=== PATIENT | male | born 1970 | race African-American/Black ===

== ENCOUNTER 2019-03-02 07:14 | Inpatient (IN) | payer MEDICARE, MEDICAID ==
[~2019-03-02] VITALS: Ht 180.3 cm; Wt 88.2 kg
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
[2019-03-02] MEDS ORDERED: PLEASE ENTER ALLERGIES MC SCH (07:30)
[2019-03-02] MEDS ORDERED: KETOROLAC 30 MG/1 ML IM ONE (07:30)
[2019-03-02] MEDS ORDERED: KETOROLAC 30 MG/1 ML ONE (07:30)
[2019-03-02] MEDS ORDERED: KETOROLAC 30 MG/1 ML IVPush ONE (08:00)
[2019-03-02 08:18] LABS: MEAN CORPUSCULAR HEMOGLOBIN 29.3 pg (27.5-34.5); MEAN CORPUSCULAR HGB CONC 32.5 g/dL (33.2-36.2); MEAN PLATELET VOLUME 8.7 fL (7.4-10.4); PLATELET COUNT 240 x10^3/uL (130-400); RED BLOOD COUNT 4.62 x10^6/uL (4.38-5.82); RED CELL DISTRIBUTION WIDTH 13.9 % (9.4-14.8)
[2019-03-02 08:28] LABS: ALBUMIN 2.7 g/dL (3.4-5.0); ANION GAP 18 mmol/L (5-15); CALCIUM 9.8 mg/dL (8.5-10.1); CHLORIDE 98 mmol/L (98-107); CREATININE 1.34 mg/dL (0.7-1.3)
--- NOTE | 2019-03-02 08:57 | NUR ---
Lab at bedside for add on labs, plan of care updated, call macdonald within reach.
[2019-03-02] MEDS ORDERED: SODIUM CHLORIDE 0.9% 1,000ML IVBOLUS ONE ×2 (09:00→11:00)
[2019-03-02 09:09] LABS: PH, VENOUS 7.325 pH (7.320-7.420)
[2019-03-02 09:10] LABS: MD YES
[2019-03-02 09:13] LABS: <PLATELET ESTIMATE> ADEQUATE; <PLT MORPHOLOGY> NORMAL PLT MORPH; <RBC MORPHOLOGY> NORMAL; BAND#(MANUAL) 1.91 x10^3/uL; BANDS%(MANUAL) 21 % (0-7); LYMPH#(MANUAL) 0.73 x10^3/uL (1-3.4); LYMPHS% (MANUAL) 8 % (22-44); MONOS#(MANUAL) 0.36 x10^3/uL (0.3-2.7); MONOS% (MANUAL) 4 % (2-9); SEGS% (MANUAL) 67 % (42-75)
[2019-03-02] MEDS ORDERED: LIDOCAINE-MPF 1%, 5ML ONE ×2 (09:26→09:38)
[2019-03-02] MEDS ORDERED: LIDOCAINE-MPF 1%, 5ML INFIL ONE (09:30)
[2019-03-02 10:33] LABS: ACETONE, SERUM Large (80mg/dL) mg/dL (Negative)
--- NOTE | 2019-03-02 10:44 | NUR ---
Patient resting in [facility], no requests at this time, call macdonald within reach.
[2019-03-02] MEDS ORDERED: VANCOMYCIN PER PHARMACY MC PRN ×2 (11:30→14:00)
[2019-03-02] MEDS ORDERED: PIPERACILLIN/TAZO/PMX 3.375GM 50 ML IV ONE (11:30)
[2019-03-02] MEDS ORDERED: PIPERACILLIN/TAZO/PMX 3.375GM 50 ML ONE (11:41)
[2019-03-02] MEDS ORDERED: PHARMACOKINETIC CONSULTATION MC ONE ×2 (12:00→17:30)
[2019-03-02] MEDS ORDERED: VANCOMYCIN 2,000 MG in SODIUM CHLORIDE 0.9% 500 ML IV ONE (12:00)
[2019-03-02] MEDS ORDERED: INSULIN REGULAR 100 UNITS/ML, 3ML VIAL IVPush ONE (12:00)
--- NOTE | 2019-03-02 12:00 | NUR ---
REPORT RECEIVED FROM ANANYA GUZMAN AT BEDSIDE. PT SLEEPING, RESPS EVEN AND UNLABORED, IVF INFUSING. PT TO HAVE BLOOD CX X 2 THEN IV ABX. PT UPDATED WITH POC.
[2019-03-02] MEDS ORDERED: SODIUM CHLORIDE 0.9% 1,000 ML IV ONE (12:14)
--- NOTE | 2019-03-02 12:22 | NUR ---
BLOOD CX DONE X 1 , AWAITING SECOND SET TO BE DRAWN BY LAB PRIOR TO ABX ADMIN.
[2019-03-02] MEDS ORDERED: SODIUM CHLORIDE FLUSH 10ML SYR IVF PRN (12:30)
--- NOTE | 2019-03-02 12:31 | NUR ---
PT UNABLE TO RECALL HOME MEDS, STATES HE ONLY TAKES MEDS FOR HIV. PT'S PHARMACY IN [place] CALLED, NO ANSWER FROM STAFF. MESSAGE LEFT BY THIS RN FOR PHARMACY WITH CALL BACK INFORMATION TO OBTAIN PT'S MED REC.
[2019-03-02] MEDS ORDERED: INSULIN LISPRO 100 UNITS/ML, PEN ONE (13:03)
[2019-03-02] MEDS ORDERED: BACITRACIN 50,000 UNIT ONE (13:17)
--- NOTE | 2019-03-02 13:17 | NUR ---
REPORT GIVEN TO RECEIVING RN MEREDITH
--- NOTE | 2019-03-02 13:26 | NUR ---
THIS RN CONFIRMED WITH PAVEL MCGREGOR THAT INSULIN ORDER IS TO BE GIVEN IV PUSH, CONFIRMS HE WANTS HUMALOG 8 UNITS ADMINISTERED IV PUSH FOR GLUCOSE 375. PT GIVEN DIABETIC DIET TRAY WITH OK. PT A&O, RESPS EVEN AND UNLABORED. VANCO INFUSING, STARTED AFTER BLOOD CX DRAWN X 2. HOSPITALIST PRABHAKAR SKINNER AT BEDSIDE. PT A&O, RESPS EVEN AND UNLABORED, TRINA.
--- NOTE | 2019-03-02 13:30 | NUR ---
ORTHO SURGEON NISSA AT BEDSIDE. PER , PT IS TO BE NPO. LUNCH TRAY TAKEN AWAY, PT HAS NOT CONSUMED ANY PO INTAKE WHILE IN ED. MD AZAR NOTIFIED PT WAS JUST GIVEN 8 UNITS IV PUSH INSULIN FOR BG 375. Addendum: 03/02/19 at 1342 by DELIA ORTHO SURGEON NISSA AT BEDSIDE. PER , PT IS TO BE NPO. LUNCH TRAY TAKEN AWAY. PT STATES HE HAS HAD APPROX 800ML WATER AT APPROX 1130 THIS AM. LAST FOOD INTAKE WAS 1430 YESTERDAY PM. MD AZAR NOTIFIED PT WAS JUST GIVEN 8 UNITS IV PUSH INSULIN FOR BG 375. PT EDUCATED TO REMAIN NPO (STRICT).
--- NOTE | 2019-03-02 13:45 | NUR ---
REPORT CALLED TO RECEIVING DUCT CLEANERANANYA SRIVASTAVA. DUCT CLEANER NOTIFIED PT HAS CONSUMED APPROX 800ML WATER AT 1130 THIS AM. DUCT CLEANER NOTIFIED PT HAS HAD 8 UNITS IV INSULIN AT 1320 FOR BLOOD GLUCOSE 372.
--- NOTE | 2019-03-02 13:52 | NUR ---
FINGERSTICK GLUCOSE RECHECKED, 339.
[2019-03-02] MEDS ORDERED: BICT1TAB PO (13:57)
[2019-03-02] MEDS ORDERED: DAPS100T PO (13:57)
[2019-03-02] MEDS ORDERED: AZIT500T2 PO (13:57)
[2019-03-02] MEDS ORDERED: BUPIVACAINE/EPI 0.5% 1:200K ONE (13:59)
[2019-03-02] MEDS ORDERED: MIDAZOLAM 1 MG/ML, 2ML ONE (14:00)
[2019-03-02] MEDS ORDERED: ONDANSETRON 2MG/ML, 2ML IVPush PRN (14:00)
[2019-03-02] MEDS ORDERED: FENTANYL PF 250 MCG/5ML ONE (14:00)
[2019-03-02] MEDS: SODIUM CHLORIDE 0.9% 1,000 ML IV SCH (14:00)
[2019-03-02] MEDS: PIPERACILLIN/TAZO/PMX 3.375GM 50 ML IV SCH ×2 (14:00→22:28)
[2019-03-02] MEDS ORDERED: LIDOCAINE 2%, 6 ML JEL.PF.APP MM ONE (14:02)
[2019-03-02 14:20] LABS: ANION GAP 15 mmol/L (5-15); CALCIUM 9.2 mg/dL (8.5-10.1); CHLORIDE 107 mmol/L (98-107); CREATININE 1.16 mg/dL (0.7-1.3)
[2019-03-02 14:25] LABS: HCT (SEDRATE) 39.2 % (39.2-51.8)
[2019-03-02 14:30] LABS: C-REACTIVE PROTEIN, QUANT > 19.00 mg/dL (0.02-0.49)
[2019-03-02] MEDS ORDERED: PHARMACY MAY ADJ FOR RENAL FX MC PRN (14:30)
[2019-03-02] MEDS ORDERED: PHENYLEPHRINE 10 MG/ML ONE (14:31)
[2019-03-02] MEDS ORDERED: MEPERIDINE/PF 50 MG/ML ONE (14:31)
[2019-03-02] MEDS ORDERED: SUCCINYLCHOLINE 20 MG/ML, 10ML ONE (14:31)
[2019-03-02] MEDS ORDERED: ROCURONIUM 10MG/ML,5ML ONE (14:31)
[2019-03-02] MEDS ORDERED: PROPOFOL 10 MG/ML, 20ML ONE (15:03)
[2019-03-02] MEDS ORDERED: ONDANSETRON 2MG/ML, 2ML ONE (15:03)
[2019-03-02 15:05] LABS: HEMOGLOBIN A1C 14.7 % (4.2-6.3)
[2019-03-02] MEDS ORDERED: MEPERIDINE/PF 100 MG/ML ONE (15:23)
[2019-03-02] MEDS ORDERED: ALBUTEROL/IPRATROPIUM 2.5MG/0.5MG, 3 ML NPPB PRN (15:30)
[2019-03-02] MEDS ORDERED: MEPERIDINE/PF 25MG/0.5ML IVPush PRN (15:30)
[2019-03-02] MEDS ORDERED: PROMETHAZINE 25 MG/ML, 1ML IV PRN (15:30)
[2019-03-02] MEDS ORDERED: MIDAZOLAM 1 MG/ML, 2ML IV PRN (15:30)
[2019-03-02] MEDS ORDERED: ACETAMINOPHEN 325 MG TABLET PO PRN (15:30)
[2019-03-02] MEDS ORDERED: ONDANSETRON 2MG/ML, 2ML IV PRN (15:30)
[2019-03-02] MEDS ORDERED: OXYcodone 5 MG/5 ML ORAL.SOL UDC PO PRN (15:30)
[2019-03-02] MEDS ORDERED: HYDROmorphone 2 MG/ML, 1ML IVPush PRN (15:30)
[2019-03-02] MEDS ORDERED: hydrALAzine 20 MG/ML, 1ML IV PRN (15:30)
[2019-03-02] MEDS ORDERED: INSULIN SINGLE DOSE, ER SQ-INSULIN ONE (15:40)
[2019-03-02] MEDS: INSULIN LISPRO 100 UNITS/ML, PEN SQ-INSULIN SCH ×2 (16:00→22:28)
[2019-03-02] MEDS ORDERED: OXYcodone 5 MG/5 ML ORAL.SOL UDC ONE (16:01)
[2019-03-02] MEDS ORDERED: FENTANYL PF 100 MCG/2ML ONE (16:26)
[2019-03-02] MEDS: FENTANYL PF 100 MCG/2ML IV PRN ×2 (16:39→16:45)
[2019-03-02 17:22] VITALS: BP 111/73
[2019-03-02] MEDS ORDERED: PHARMACOKINETIC MONITORING MC PRN (17:30)
[2019-03-02 17:57] LABS: ANION GAP 12 mmol/L (5-15); CALCIUM 8.5 mg/dL (8.5-10.1); CHLORIDE 108 mmol/L (98-107); CREATININE 1.08 mg/dL (0.7-1.3)
[2019-03-02 21:16] VITALS: BP 132/82
[2019-03-02] MEDS: morphine SULFATE 10 MG/ML, 1ML IVPush PRN (22:51)
[2019-03-03] MEDS: SODIUM CHLORIDE 0.9% 1,000 ML IV SCH ×3 (00:03→23:46)
[2019-03-03] MEDS: ACETAMINOPHEN 325 MG TABLET PO PRN ×2 (00:26→08:33)
[2019-03-03] MEDS ORDERED: VANCOMYCIN 1,800 MG in SODIUM CHLORIDE 0.9% 250 ML IV SCH (01:15)
[2019-03-03 02:35] VITALS: BP 103/64
[2019-03-03 04:00] VITALS: BP 121/75
[2019-03-03] MEDS: PIPERACILLIN/TAZO/PMX 3.375GM 50 ML IV SCH ×2 (04:57→10:35)
[2019-03-03 05:26] LABS: MEAN CORPUSCULAR HGB CONC 33.7 g/dL (33.2-36.2); MEAN PLATELET VOLUME 7.8 fL (7.4-10.4); PLATELET COUNT 232 x10^3/uL (130-400); RED BLOOD COUNT 3.67 x10^6/uL (4.38-5.82); RED CELL DISTRIBUTION WIDTH 14.2 % (9.4-14.8)
[2019-03-03 05:27] LABS: CHLORIDE 106 mmol/L (98-107)
[2019-03-03 05:39] LABS: ANION GAP 10 mmol/L (5-15); CALCIUM 8.6 mg/dL (8.5-10.1); CREATININE 1.23 mg/dL (0.7-1.3)
[2019-03-03 06:03] VITALS: BP 127/82
[2019-03-03] MEDS: morphine SULFATE 10 MG/ML, 1ML IVPush PRN ×2 (06:03→12:08)
[2019-03-03 06:35] LABS: MD YES
[2019-03-03 06:36] LABS: BAND#(MANUAL) 0.87 x10^3/uL; BANDS%(MANUAL) 10 % (0-7); LYMPH#(MANUAL) 0.87 x10^3/uL (1-3.4); LYMPHS% (MANUAL) 10 % (22-44); MONOS#(MANUAL) 0.52 x10^3/uL (0.3-2.7); MONOS% (MANUAL) 6 % (2-9); SEG#(MANUAL) 6.44 x10^3/uL (1.8-6.8); SEGS% (MANUAL) 74 % (42-75)
[2019-03-03 06:37] LABS: <PLATELET ESTIMATE> ADEQUATE; <PLT MORPHOLOGY> NORMAL PLT MORPH; <RBC MORPHOLOGY> NORMAL
[2019-03-03] MEDS: INSULIN LISPRO 100 UNITS/ML, PEN SQ-INSULIN SCH ×4 (08:33→21:04)
[2019-03-03] MEDS ORDERED: SENNA/DOCUSATE TABLET PO PRN (11:00)
[2019-03-03] MEDS ORDERED: MAGNESIUM CITRATE 300ML ORAL SOL PO ONE (13:00)
[2019-03-03] MEDS ORDERED: BISACODYL 10 MG SUPP PR ONE (13:00)
[2019-03-03] MEDS: ACETAMINOPHEN 325 MG TABLET PO SCH ×3 (13:47→23:45)
[2019-03-03] MEDS: AMPICILLIN/SULBACTAM 3 GM in SODIUM CHLORIDE 0.9% 100 ML IV SCH ×2 (13:48→21:14)
[2019-03-03 13:57] VITALS: BP 138/81
[2019-03-03 19:55] VITALS: BP 144/78
[2019-03-03] MEDS: INSULIN GLARGINE 100 UNITS/ML, PEN SQ-INSULIN SCH (21:05)
[2019-03-04] VITALS: BP 136/73
[2019-03-04] MEDS: AMPICILLIN/SULBACTAM 3 GM in SODIUM CHLORIDE 0.9% 100 ML IV SCH ×3 (05:23→22:15)
[2019-03-04] MEDS: ACETAMINOPHEN 325 MG TABLET PO SCH ×3 (05:23→17:10)
[2019-03-04 06:16] LABS: % IRON SATURATION 14 % (20-55); IRON LEVEL 28 mcg/dL (65-175); TOTAL IRON BINDING CAPACITY 196 mcg/dL (250-450)
[2019-03-04 06:23] LABS: C-REACTIVE PROTEIN, QUANT > 19.00 mg/dL (0.02-0.49)
[2019-03-04 07:35] VITALS: BP 125/71
[2019-03-04] MEDS: INSULIN LISPRO 100 UNITS/ML, PEN SQ-INSULIN SCH ×4 (07:48→20:30)
[2019-03-04] MEDS: CARVEDILOL 6.25 MG TABLET PO SCH ×2 (09:40→17:10)
[2019-03-04] MEDS: HEPARIN 5,000 UNITS/ML, 1ML SQ SCH ×2 (09:41→16:19)
[2019-03-04] MEDS: morphine SULFATE 10 MG/ML, 1ML IVPush PRN (10:49)
[2019-03-04] MEDS: FERROUS SULFATE 325 MG TABLET PO SCH (11:50)
[2019-03-04 13:02] VITALS: BP 151/78
[2019-03-04] MEDS: SODIUM CHLORIDE 0.9% 1,000 ML IV SCH (13:50)
[2019-03-04] MEDS: GABAPENTIN 100 MG CAPSULE PO SCH ×2 (16:19→20:31)
[2019-03-04 20:07] VITALS: BP 131/66
[2019-03-04] MEDS: INSULIN GLARGINE 100 UNITS/ML, PEN SQ-INSULIN SCH (20:30)
[2019-03-05] MEDS: ACETAMINOPHEN 325 MG TABLET PO SCH ×4 (01:32→20:40)
[2019-03-05] MEDS: HEPARIN 5,000 UNITS/ML, 1ML SQ SCH ×3 (01:33→16:34)
[2019-03-05 02:45] VITALS: BP 129/58
[2019-03-05 05:45] LABS: MEAN CORPUSCULAR HEMOGLOBIN 29.4 pg (27.5-34.5); MEAN CORPUSCULAR HGB CONC 33.3 g/dL (33.2-36.2); MEAN CORPUSCULAR VOLUME 88.4 fL (81-97); PLATELET COUNT 255 x10^3/uL (130-400); RED BLOOD COUNT 3.83 x10^6/uL (4.38-5.82); RED CELL DISTRIBUTION WIDTH 13.8 % (9.4-14.8)
[2019-03-05] MEDS: AMPICILLIN/SULBACTAM 3 GM in SODIUM CHLORIDE 0.9% 100 ML IV SCH ×4 (06:01→23:24)
[2019-03-05] MEDS: SODIUM CHLORIDE 0.9% 1,000 ML IV SCH ×2 (06:02→20:41)
[2019-03-05] MEDS: CARVEDILOL 6.25 MG TABLET PO SCH ×2 (06:03→18:28)
[2019-03-05 06:07] LABS: ANION GAP 9 mmol/L (5-15); CALCIUM 8.6 mg/dL (8.5-10.1); CHLORIDE 103 mmol/L (98-107)
[2019-03-05 06:08] LABS: CREATININE 0.99 mg/dL (0.7-1.3)
[2019-03-05 06:34] LABS: MD YES
[2019-03-05 06:45] LABS: BAND#(MANUAL) 1.09 x10^3/uL; BANDS%(MANUAL) 12 % (0-7); BASOS#(MANUAL) 0.09 x10^3/uL (0-0.1); BASOS% (MANUAL) 1 % (0-1); LYMPH#(MANUAL) 1.73 x10^3/uL (1-3.4); LYMPHS% (MANUAL) 19 % (22-44); MONOS#(MANUAL) 0.64 x10^3/uL (0.3-2.7); MONOS% (MANUAL) 7 % (2-9); SEG#(MANUAL) 5.55 x10^3/uL (1.8-6.8); SEGS% (MANUAL) 61 % (42-75)
[2019-03-05 06:48] LABS: <PLATELET ESTIMATE> ADEQUATE
[2019-03-05] MEDS: INSULIN LISPRO 100 UNITS/ML, PEN SQ-INSULIN SCH ×4 (07:00→20:41)
[2019-03-05] MEDS ORDERED: POTASSIUM CHLORIDE 20 MEQ TAB.ER.PRT PO ONE (08:00)
[2019-03-05] MEDS: GABAPENTIN 100 MG CAPSULE PO SCH ×3 (08:18→20:40)
[2019-03-05 08:27] VITALS: BP 156/89
[2019-03-05 13:28] VITALS: BP 142/93
[2019-03-05] MEDS: INSULIN GLARGINE 100 UNITS/ML, PEN SQ-INSULIN SCH (20:41)
[2019-03-05 20:48] VITALS: BP 144/80
[2019-03-06] MEDS: HEPARIN 5,000 UNITS/ML, 1ML SQ SCH ×3 (01:02→17:42)
[2019-03-06] MEDS: ACETAMINOPHEN 325 MG TABLET PO SCH ×4 (02:48→20:30)
[2019-03-06 03:00] VITALS: BP 137/1
[2019-03-06 05:30] LABS: ANION GAP 11 mmol/L (5-15); CALCIUM 8.5 mg/dL (8.5-10.1); CHLORIDE 105 mmol/L (98-107)
[2019-03-06 05:32] LABS: CREATININE 0.86 mg/dL (0.7-1.3)
[2019-03-06] MEDS: CARVEDILOL 6.25 MG TABLET PO SCH (06:17)
[2019-03-06] MEDS: AMPICILLIN/SULBACTAM 3 GM in SODIUM CHLORIDE 0.9% 100 ML IV SCH ×3 (06:17→22:05)
[2019-03-06 07:51] VITALS: BP 157/88
[2019-03-06] MEDS: INSULIN LISPRO 100 UNITS/ML, PEN SQ-INSULIN SCH ×4 (08:18→20:31)
[2019-03-06] MEDS: GABAPENTIN 100 MG CAPSULE PO SCH ×3 (08:24→20:30)
[2019-03-06] MEDS ORDERED: POTASSIUM CHLORIDE 20 MEQ TAB.ER.PRT PO ONE (09:00)
[2019-03-06] MEDS ORDERED: INSU100I11 SQ-INSULIN (10:02)
[2019-03-06] MEDS ORDERED: KETO10TA PO (10:02)
[2019-03-06] MEDS ORDERED: ACET325T14 PO (10:02)
[2019-03-06] MEDS ORDERED: CARV12.543 PO (10:02)
[2019-03-06] MEDS ORDERED: INSU100I13 SQ-INSULIN ×2 (10:02)
[2019-03-06] MEDS ORDERED: SENN-177 PO (10:02)
[2019-03-06] MEDS ORDERED: FERR-51 PO (10:02)
[2019-03-06] MEDS: morphine SULFATE 10 MG/ML, 1ML IVPush PRN (10:40)
[2019-03-06] MEDS: FERROUS SULFATE 325 MG TABLET PO SCH (12:27)
[2019-03-06] MEDS: CARVEDILOL 12.5 MG TABLET PO SCH (17:42)
[2019-03-06 17:44] VITALS: BP 142/82
[2019-03-06] MEDS: INSULIN GLARGINE 100 UNITS/ML, PEN SQ-INSULIN SCH (20:06)
[2019-03-06] MEDS: SODIUM CHLORIDE 0.9% 1,000 ML IV SCH (20:33)
[2019-03-06 20:39] VITALS: BP 166/87
[2019-03-07] MEDS: HEPARIN 5,000 UNITS/ML, 1ML SQ SCH ×3 (01:30→18:22)
[2019-03-07 02:25] VITALS: BP 155/78
[2019-03-07] MEDS: ACETAMINOPHEN 325 MG TABLET PO SCH ×2 (02:31→08:31)
[2019-03-07 05:56] VITALS: BP 149/74
[2019-03-07] MEDS: CARVEDILOL 12.5 MG TABLET PO SCH ×2 (05:58→18:21)
[2019-03-07] MEDS: AMPICILLIN/SULBACTAM 3 GM in SODIUM CHLORIDE 0.9% 100 ML IV SCH (05:59)
[2019-03-07 06:16] LABS: ANION GAP 9 mmol/L (5-15); CALCIUM 8.4 mg/dL (8.5-10.1); CHLORIDE 106 mmol/L (98-107)
[2019-03-07 06:18] LABS: CREATININE 0.78 mg/dL (0.7-1.3)
[2019-03-07] MEDS: INSULIN LISPRO 100 UNITS/ML, PEN SQ-INSULIN SCH ×4 (07:00→21:00)
[2019-03-07] MEDS: SODIUM CHLORIDE 0.9% 1,000 ML IV SCH ×2 (08:31→13:22)
[2019-03-07] MEDS: GABAPENTIN 100 MG CAPSULE PO SCH ×3 (08:31→21:32)
[2019-03-07] MEDS: CEFAZOLIN 2,000 MG in SODIUM CHLORIDE 0.9% 50 ML IV SCH ×2 (13:34→21:33)
[2019-03-07] MEDS ORDERED: ACETAMINOPHEN 325 MG TABLET PO PRN (14:00)
[2019-03-07] MEDS: POTASSIUM CHLORIDE 20 MEQ TAB.ER.PRT PO SCH ×2 (14:11→18:21)
[2019-03-07 15:19] LABS: CLOSTRIDIUM DIFFICILE ANTIGEN POSITIVE; CLOSTRIDIUM DIFFICILE TOXIN POSITIVE (Negative)
[2019-03-07] MEDS: VANCOMYCIN 50 MG/ML ORAL SUSP PO SCH (18:21)
[2019-03-07 18:48] VITALS: BP 167/85
[2019-03-07 19:07] LABS: MEAN CORPUSCULAR HEMOGLOBIN 29.9 pg (27.5-34.5); MEAN CORPUSCULAR HGB CONC 33.6 g/dL (33.2-36.2); MEAN CORPUSCULAR VOLUME 89.1 fL (81-97); PLATELET COUNT 267 x10^3/uL (130-400); RED BLOOD COUNT 3.49 x10^6/uL (4.38-5.82); RED CELL DISTRIBUTION WIDTH 13.8 % (9.4-14.8)
[2019-03-07 19:39] LABS: MD YES
[2019-03-07 19:43] LABS: <RBC MORPHOLOGY> NORMAL; BANDS%(MANUAL) 12 % (0-7); LYMPHS% (MANUAL) 8 % (22-44); MONOS% (MANUAL) 6 % (2-9); REACTIVE LYMPHS % (MANUAL) 1 % (0-0); SEGS% (MANUAL) 73 % (42-75)
[2019-03-07 19:44] LABS: PMNS WITH VACUOLES 1+
[2019-03-07 19:45] LABS: <PLATELET ESTIMATE> ADEQUATE; <PLT MORPHOLOGY> NORMAL PLT MORPH
[2019-03-07] MEDS: INSULIN GLARGINE 100 UNITS/ML, PEN SQ-INSULIN SCH (21:00)
[2019-03-07] MEDS: OXYcodone IR 5MG TABLET PO PRN (21:44)
[2019-03-08] MEDS: VANCOMYCIN 50 MG/ML ORAL SUSP PO SCH ×4 (00:20→21:41)
[2019-03-08] MEDS: HEPARIN 5,000 UNITS/ML, 1ML SQ SCH ×3 (00:23→17:30)
[2019-03-08 04:39] VITALS: BP 134/73
[2019-03-08] MEDS: CARVEDILOL 12.5 MG TABLET PO SCH ×2 (05:19→21:40)
[2019-03-08] MEDS: CEFAZOLIN 2,000 MG in SODIUM CHLORIDE 0.9% 50 ML IV SCH ×2 (05:19→18:14)
[2019-03-08 05:56] LABS: ANION GAP 8 mmol/L (5-15); CALCIUM 8.4 mg/dL (8.5-10.1); CHLORIDE 107 mmol/L (98-107); CREATININE 0.78 mg/dL (0.7-1.3)
[2019-03-08] MEDS ORDERED: MAGNESIUM SULFATE PMX 2GM/50ML 50 ML IV ONE (08:00)
[2019-03-08 08:35] VITALS: BP 156/79
[2019-03-08] MEDS: POTASSIUM CHLORIDE 20 MEQ TAB.ER.PRT PO SCH ×2 (09:33→12:00)
[2019-03-08] MEDS: INSULIN LISPRO 100 UNITS/ML, PEN SQ-INSULIN SCH ×4 (09:33→21:37)
[2019-03-08] MEDS: GABAPENTIN 100 MG CAPSULE PO SCH ×3 (09:33→21:41)
[2019-03-08] MEDS: FERROUS SULFATE 325 MG TABLET PO SCH (11:30)
[2019-03-08] MEDS ORDERED: ROPIvacaine/PF 0.5%, 30 ML ONE (15:25)
[2019-03-08] MEDS ORDERED: LIDOCAINE 1%-EPI 1:100K, 20ML ONE (15:25)
[2019-03-08] MEDS ORDERED: PROPOFOL 10 MG/ML, 20ML ONE (15:40)
[2019-03-08] MEDS ORDERED: DEXAMETHASONE 4 MG/ML, 1ML ONE (15:40)
[2019-03-08] MEDS ORDERED: ONDANSETRON 2MG/ML, 2ML ONE (15:40)
[2019-03-08] MEDS ORDERED: FENTANYL PF 250 MCG/5ML ONE (15:40)
[2019-03-08] MEDS ORDERED: MIDAZOLAM 1 MG/ML, 2ML ONE (15:40)
[2019-03-08] MEDS ORDERED: MEPERIDINE/PF 50 MG/ML ONE (16:03)
[2019-03-08] MEDS ORDERED: DIAZEPAM 5 MG/ML, 2ML IVPush PRN (16:30)
[2019-03-08] MEDS ORDERED: MEPERIDINE/PF 25MG/0.5ML IVPush PRN (16:30)
[2019-03-08] MEDS ORDERED: HALOPERIDOL 5 MG/ML IV PRN (16:30)
[2019-03-08] MEDS ORDERED: ACETAMINOPHEN 325 MG TABLET PO PRN (16:30)
[2019-03-08] MEDS ORDERED: hydrALAzine 20 MG/ML, 1ML IV PRN (16:30)
[2019-03-08] MEDS ORDERED: FENTANYL PF 100 MCG/2ML ONE ×3 (16:39→17:05)
[2019-03-08] MEDS ORDERED: OXYcodone 5 MG/5 ML ORAL.SOL UDC ONE ×2 (17:00→17:18)
[2019-03-08] MEDS: OXYcodone 5 MG/5 ML ORAL.SOL UDC PO PRN ×2 (17:10→17:20)
[2019-03-08] MEDS: FENTANYL PF 100 MCG/2ML IV PRN ×2 (17:10→17:20)
[2019-03-08] MEDS ORDERED: HYDROmorphone 2 MG/ML, 1ML ONE (17:18)
[2019-03-08] MEDS: HYDROmorphone 2 MG/ML, 1ML IVPush PRN ×2 (17:25→17:30)
[2019-03-08 20:00] VITALS: BP 149/88
[2019-03-08] MEDS ORDERED: INSULIN GLARGINE 100 UNITS/ML, PEN SQ-INSULIN SCH (21:00)
[2019-03-09] MEDS: HEPARIN 5,000 UNITS/ML, 1ML SQ SCH ×4 (00:45→23:54)
[2019-03-09] MEDS: VANCOMYCIN 50 MG/ML ORAL SUSP PO SCH ×5 (00:45→23:54)
[2019-03-09 02:00] VITALS: BP 137/77
[2019-03-09] MEDS: CEFAZOLIN 2,000 MG in SODIUM CHLORIDE 0.9% 50 ML IV SCH ×3 (02:03→18:07)
[2019-03-09] MEDS: CARVEDILOL 12.5 MG TABLET PO SCH ×2 (05:56→17:36)
[2019-03-09 06:29] LABS: MEAN CORPUSCULAR HEMOGLOBIN 28.7 pg (27.5-34.5); MEAN CORPUSCULAR HGB CONC 32.6 g/dL (33.2-36.2); MEAN PLATELET VOLUME 7.2 fL (7.4-10.4); PLATELET COUNT 339 x10^3/uL (130-400); RED BLOOD COUNT 3.79 x10^6/uL (4.38-5.82); RED CELL DISTRIBUTION WIDTH 13.4 % (9.4-14.8)
[2019-03-09 06:38] LABS: ANION GAP 8 mmol/L (5-15); CALCIUM 8.8 mg/dL (8.5-10.1); CHLORIDE 104 mmol/L (98-107); CREATININE 0.82 mg/dL (0.7-1.3)
[2019-03-09 07:53] LABS: MD YES
[2019-03-09 08:05] LABS: BANDS%(MANUAL) 6 % (0-7); LYMPHS% (MANUAL) 3 % (22-44); METAMYELOCYTES# (MANUAL) 0.27 x10^3/uL (0-0); METAMYELOCYTES% (MANUAL) 2 % (0-1); MONOS#(MANUAL) 0.54 x10^3/uL (0.3-2.7); MONOS% (MANUAL) 4 % (2-9); MYELOCYTES# (MANUAL) 0.13 x10^3/uL (0-0); MYELOCYTES% (MANUAL) 1 % (0-0); REACTIVE LYMPHS # (MANUAL) 0.27 x10^3/uL (0-0); REACTIVE LYMPHS % (MANUAL) 2 % (0-0); SEG#(MANUAL) 10.99 x10^3/uL (1.8-6.8); SEGS% (MANUAL) 82 % (42-75)
[2019-03-09 08:08] LABS: <RBC MORPHOLOGY> NORMAL; TOXIC GRAN 1+
[2019-03-09 08:09] LABS: <PLATELET ESTIMATE> ADEQUATE; <PLT MORPHOLOGY> NORMAL PLT MORPH
[2019-03-09 08:14] VITALS: BP 145/85
[2019-03-09] MEDS ORDERED: AZITHROMYCIN 600 MG TABLET PO SCH (08:30)
[2019-03-09] MEDS: [UNRECOGNIZED DRUG - REMARK] MC SCH ×2 (09:00→16:34)
[2019-03-09] MEDS: BICTEGRAV/EMTRICIT/TENOFOV ALA TAB PO SCH (09:26)
[2019-03-09] MEDS: DAPSONE 100 MG TABLET PO SCH (09:27)
[2019-03-09] MEDS: GABAPENTIN 100 MG CAPSULE PO SCH ×3 (09:27→21:02)
[2019-03-09] MEDS: INSULIN LISPRO 100 UNITS/ML, PEN SQ-INSULIN SCH ×4 (09:31→21:02)
[2019-03-09 14:11] VITALS: BP 144/84
[2019-03-09 19:38] VITALS: BP 142/79
[2019-03-09] MEDS ORDERED: INSULIN GLARGINE 100 UNITS/ML, PEN SQ-INSULIN SCH (21:00)
[2019-03-10 01:32] VITALS: BP 154/87
[2019-03-10] MEDS: CEFAZOLIN 2,000 MG in SODIUM CHLORIDE 0.9% 50 ML IV SCH ×3 (02:04→18:18)
[2019-03-10] MEDS: VANCOMYCIN 50 MG/ML ORAL SUSP PO SCH ×3 (05:17→18:18)
[2019-03-10] MEDS: CARVEDILOL 12.5 MG TABLET PO SCH ×2 (05:17→18:18)
[2019-03-10 08:36] VITALS: BP 148/86
[2019-03-10] MEDS: INSULIN LISPRO 100 UNITS/ML, PEN SQ-INSULIN SCH ×4 (08:49→20:52)
[2019-03-10] MEDS: BICTEGRAV/EMTRICIT/TENOFOV ALA TAB PO SCH (08:50)
[2019-03-10] MEDS: GABAPENTIN 100 MG CAPSULE PO SCH ×3 (08:50→20:52)
[2019-03-10] MEDS: DAPSONE 100 MG TABLET PO SCH (08:50)
[2019-03-10] MEDS: HEPARIN 5,000 UNITS/ML, 1ML SQ SCH ×2 (08:50→18:17)
[2019-03-10] MEDS: FERROUS SULFATE 325 MG TABLET PO SCH (11:52)
[2019-03-10 15:34] VITALS: BP 163/83
[2019-03-10 19:46] VITALS: BP 125/71
[2019-03-10] MEDS ORDERED: INSULIN GLARGINE 100 UNITS/ML, PEN SQ-INSULIN SCH (21:00)
[2019-03-11] MEDS: VANCOMYCIN 50 MG/ML ORAL SUSP PO SCH ×4 (00:58→20:26)
[2019-03-11] MEDS: HEPARIN 5,000 UNITS/ML, 1ML SQ SCH ×3 (00:58→18:15)
[2019-03-11] MEDS: CEFAZOLIN 2,000 MG in SODIUM CHLORIDE 0.9% 50 ML IV SCH ×3 (01:34→18:15)
[2019-03-11 01:49] VITALS: BP 153/84
[2019-03-11 05:37] LABS: CHLORIDE 105 mmol/L (98-107)
[2019-03-11 05:42] LABS: ANION GAP 7 mmol/L (5-15); CREATININE 0.87 mg/dL (0.7-1.3)
[2019-03-11 05:44] LABS: MEAN CORPUSCULAR HGB CONC 32.8 g/dL (33.2-36.2); MEAN CORPUSCULAR VOLUME 88.4 fL (81-97); PLATELET COUNT 443 x10^3/uL (130-400); RED BLOOD COUNT 3.52 x10^6/uL (4.38-5.82); RED CELL DISTRIBUTION WIDTH 13.8 % (9.4-14.8)
[2019-03-11] MEDS: CARVEDILOL 12.5 MG TABLET PO SCH ×2 (05:58→18:15)
[2019-03-11 06:23] LABS: BASOPHILS # (AUTO) 0.02 x10^3/uL (0-0.1); BASOPHILS % (AUTO) 0 % (0-1); EOSINOPHILS # (AUTO) 0.07 x10^3/uL (0-0.4); EOSINOPHILS % (AUTO) 1 % (1-7); LYMPHOCYTES # (AUTO) 1.92 x10^3/uL (1-3.4); LYMPHOCYTES % (AUTO) 17 % (22-44); MD NO; MONOCYTES # (AUTO) 0.88 x10^3/uL (0.2-0.8); MONOCYTES % (AUTO) 8 % (2-9); NEUTROPHILS # (AUTO) 8.36 x10^3/uL (1.8-6.8); NEUTROPHILS % (AUTO) 74 % (42-75)
[2019-03-11 08:15] VITALS: BP 130/75
[2019-03-11] MEDS ORDERED: POTASSIUM CHLORIDE 20 MEQ TAB.ER.PRT PO ONE (08:30)
[2019-03-11] MEDS: BICTEGRAV/EMTRICIT/TENOFOV ALA TAB PO SCH ×2 (09:00→20:26)
[2019-03-11] MEDS: INSULIN LISPRO 100 UNITS/ML, PEN SQ-INSULIN SCH ×4 (09:05→20:27)
[2019-03-11] MEDS: GABAPENTIN 100 MG CAPSULE PO SCH ×3 (09:07→20:26)
[2019-03-11 13:20] VITALS: BP 143/84
[2019-03-11] MEDS: DAPSONE 100 MG TABLET PO SCH (20:26)
[2019-03-11] MEDS: INSULIN GLARGINE 100 UNITS/ML, PEN SQ-INSULIN SCH (20:27)
[2019-03-11 20:56] VITALS: BP 150/84
[2019-03-12] MEDS: HEPARIN 5,000 UNITS/ML, 1ML SQ SCH ×3 (01:47→18:09)
[2019-03-12] MEDS: CEFAZOLIN 2,000 MG in SODIUM CHLORIDE 0.9% 50 ML IV SCH ×3 (01:47→18:09)
[2019-03-12] MEDS: VANCOMYCIN 50 MG/ML ORAL SUSP PO SCH ×4 (01:47→20:22)
[2019-03-12 01:50] VITALS: BP 132/83
[2019-03-12 05:06] VITALS: BP 134/84
[2019-03-12] MEDS: CARVEDILOL 12.5 MG TABLET PO SCH ×2 (05:06→18:09)
[2019-03-12 06:34] LABS: HCT (SEDRATE) 31.7 % (39.2-51.8)
[2019-03-12 06:41] LABS: ANION GAP 7 mmol/L (5-15); CHLORIDE 104 mmol/L (98-107); CREATININE 0.83 mg/dL (0.7-1.3); MEAN CORPUSCULAR HEMOGLOBIN 29.4 pg (27.5-34.5); MEAN CORPUSCULAR HGB CONC 33.5 g/dL (33.2-36.2); MEAN CORPUSCULAR VOLUME 87.8 fL (81-97); MEAN PLATELET VOLUME 6.8 fL (7.4-10.4); PLATELET COUNT 560 x10^3/uL (130-400); RED BLOOD COUNT 3.59 x10^6/uL (4.38-5.82); RED CELL DISTRIBUTION WIDTH 13.8 % (9.4-14.8)
[2019-03-12 07:32] LABS: BASOPHILS # (AUTO) 0.14 x10^3/uL (0-0.1); BASOPHILS % (AUTO) 1 % (0-1); EOSINOPHILS # (AUTO) 0.13 x10^3/uL (0-0.4); EOSINOPHILS % (AUTO) 1 % (1-7); LYMPHOCYTES # (AUTO) 2.11 x10^3/uL (1-3.4); LYMPHOCYTES % (AUTO) 15 % (22-44); MD SCAN; MONOCYTES # (AUTO) 0.99 x10^3/uL (0.2-0.8); MONOCYTES % (AUTO) 7 % (2-9); NEUTROPHILS # (AUTO) 10.68 x10^3/uL (1.8-6.8); NEUTROPHILS % (AUTO) 76 % (42-75)
[2019-03-12] MEDS: INSULIN LISPRO 100 UNITS/ML, PEN SQ-INSULIN SCH ×4 (07:58→19:26)
[2019-03-12] MEDS: GABAPENTIN 100 MG CAPSULE PO SCH ×3 (07:59→20:22)
[2019-03-12] MEDS ORDERED: AZITHROMYCIN 600 MG TABLET PO SCH (09:00)
[2019-03-12 09:15] VITALS: BP 112/71
[2019-03-12] MEDS: FERROUS SULFATE 325 MG TABLET PO SCH (15:46)
[2019-03-12 16:37] VITALS: BP 152/89
[2019-03-12 19:26] VITALS: BP 130/76
[2019-03-12] MEDS: INSULIN GLARGINE 100 UNITS/ML, PEN SQ-INSULIN SCH (19:33)
[2019-03-12] MEDS: BICTEGRAV/EMTRICIT/TENOFOV ALA TAB PO SCH (20:22)
[2019-03-12] MEDS: DAPSONE 100 MG TABLET PO SCH (20:22)
[2019-03-12] MEDS ORDERED: INSULIN GLARGINE 100 UNITS/ML, PEN SQ-INSULIN SCH (21:00)
[2019-03-13 00:54] VITALS: BP 152/94
[2019-03-13] MEDS: HEPARIN 5,000 UNITS/ML, 1ML SQ SCH ×3 (01:21→16:11)
[2019-03-13] MEDS: VANCOMYCIN 50 MG/ML ORAL SUSP PO SCH ×3 (02:01→16:20)
[2019-03-13] MEDS: CEFAZOLIN 2,000 MG in SODIUM CHLORIDE 0.9% 50 ML IV SCH ×3 (02:01→18:00)
[2019-03-13 05:20] VITALS: BP 126/77
[2019-03-13] MEDS: CARVEDILOL 12.5 MG TABLET PO SCH ×2 (05:22→18:00)
[2019-03-13 06:44] LABS: MEAN CORPUSCULAR HEMOGLOBIN 29.8 pg (27.5-34.5); MEAN CORPUSCULAR HGB CONC 33.9 g/dL (33.2-36.2); MEAN CORPUSCULAR VOLUME 87.9 fL (81-97); MEAN PLATELET VOLUME 6.7 fL (7.4-10.4); PLATELET COUNT 604 x10^3/uL (130-400); RED CELL DISTRIBUTION WIDTH 13.4 % (9.4-14.8)
[2019-03-13 06:57] LABS: ANION GAP 7 mmol/L (5-15); CHLORIDE 105 mmol/L (98-107)
[2019-03-13 06:58] LABS: CREATININE 0.87 mg/dL (0.7-1.3)
[2019-03-13 07:37] LABS: BASOPHILS # (AUTO) 0.13 x10^3/uL (0-0.1); BASOPHILS % (AUTO) 1 % (0-1); EOSINOPHILS % (AUTO) 1 % (1-7); LYMPHOCYTES # (AUTO) 1.81 x10^3/uL (1-3.4); LYMPHOCYTES % (AUTO) 15 % (22-44); MD SCAN; MONOCYTES # (AUTO) 0.96 x10^3/uL (0.2-0.8); MONOCYTES % (AUTO) 8 % (2-9); NEUTROPHILS # (AUTO) 9.17 x10^3/uL (1.8-6.8); NEUTROPHILS % (AUTO) 75 % (42-75)
[2019-03-13] MEDS: GABAPENTIN 100 MG CAPSULE PO SCH ×2 (09:26→16:20)
[2019-03-13] MEDS: OXYcodone IR 5MG TABLET PO PRN (10:00)
[2019-03-13] MEDS ORDERED: POTASSIUM CHLORIDE 40 MEQ in SODIUM CHLORIDE 0.9% 500 ML IV ONE (10:00)
[2019-03-13 10:58] VITALS: BP 130/80
[2019-03-13] MEDS ORDERED: INSU100I13 SQ-INSULIN (14:10)
[2019-03-13] MEDS ORDERED: VANC1VIA3 PO (14:10)
[2019-03-13] MEDS ORDERED: AZIT600T4 PO (14:10)
[2019-03-13] MEDS ORDERED: CEFA2PIG IV (14:10)
[2019-03-13 14:40] VITALS: BP 134/88
== END 2019-03-13 18:00 | DRG 463 ==
LOC: ED 10:05 → EDIP 12:14 → 4EST 17:06
PROVIDERS: ADMIT Internal Medicine; ATTEND Internal Medicine
PROC: 0SBD4ZZ Excision of Left Knee Joint, Percutaneous Endoscopic Approach (ICD-10-PCS; 2019-03-02)
PROC: 0SP Lower Joints, Removal (ICD-10-PCS; 2019-03-02)
PROC: 0S9D3ZZ Drainage of Left Knee Joint, Percutaneous Approach (ICD-10-PCS; 2019-03-02)
PROC: 0SBD4ZZ Excision of Left Knee Joint, Percutaneous Endoscopic Approach (ICD-10-PCS; principal; 2019-03-02 15:15)
PROC: 0SBD4ZZ Excision of Left Knee Joint, Percutaneous Endoscopic Approach (ICD-10-PCS; 2019-03-08)
PROC: 0YP Anatomical Regions, Lower Extremities, Removal (ICD-10-PCS; 2019-03-08)
PROC: 02HV33Z Insertion of Infusion Device into Superior Vena Cava, Percutaneous Approach (ICD-10-PCS; 2019-03-13)
PROC: B548ZZA Ultrasonography of Superior Vena Cava, Guidance (ICD-10-PCS; 2019-03-13)
PROC: B5181ZA Fluoroscopy of Superior Vena Cava using Low Osmolar Contrast, Guidance (ICD-10-PCS; 2019-03-13)
DX: T84.54XA Infection and inflammatory reaction due to internal left knee prosthesis, initial encounter (principal); A40.9 Streptococcal sepsis, unspecified; N17.0 Acute kidney failure with tubular necrosis; M00.9 Pyogenic arthritis, unspecified; E44.1 Mild protein-calorie malnutrition; E87.2 Acidosis; A04.72 Enterocolitis due to Clostridium difficile, not specified as recurrent; K52.1 Toxic gastroenteritis and colitis; E66.9 Obesity, unspecified; E83.42 Hypomagnesemia; E87.6 Hypokalemia; T36.95XA Adverse effect of unspecified systemic antibiotic, initial encounter; L02.92 Furuncle, unspecified; K59.00 Constipation, unspecified; I10 Essential (primary) hypertension; M11.20 Other chondrocalcinosis, unspecified site; G47.00 Insomnia, unspecified; E11.65 Type 2 diabetes mellitus with hyperglycemia; E11.40 Type 2 diabetes mellitus with diabetic neuropathy, unspecified; E83.39 Other disorders of phosphorus metabolism; D50.9 Iron deficiency anemia, unspecified; M94.262 Chondromalacia, left knee; M65.9 Synovitis and tenosynovitis, unspecified; Y83.2 Surgical operation with anastomosis, bypass or graft as the cause of abnormal reaction of the patient, or of later complication, without mention of misadventure at the time of the procedure; S83.282A Other tear of lateral meniscus, current injury, left knee, initial encounter; S83.242A Other tear of medial meniscus, current injury, left knee, initial encounter; F12.10 Cannabis abuse, uncomplicated; Z88.8 Allergy status to other drugs, medicaments and biological substances; Z91.19 Patient's noncompliance with other medical treatment and regimen; Z82.49 Family history of ischemic heart disease and other diseases of the circulatory system; Z79.4 Long term (current) use of insulin; Z79.2 Long term (current) use of antibiotics; Z82.3 Family history of stroke; Y92.89 Other specified places as the place of occurrence of the external cause; Z21 Asymptomatic human immunodeficiency virus [HIV] infection status
CPT/HCPCS: 20610; 36415; 36573; 76000; 80048; 82010; 82040; 82803; 82945; 82962; 83036; 83540; 83550; 83615; 83735; 84157; 84560; 85025; 85651; 85810; 86140; 87015; 87040; 87070; 87075; 87077; 87102; 87116; 87147; 87181; 87205; 87206; 87324; 89050; 89060; 96361; 96374; 96375; G0378; J0295; J0690; J1100; J1170; J1644; J1885; J2175; J2250; J2405; J2543; J2704; J2795; J3010; J3370; J3480; J3490; C1751; J0330; J1815; J2270; J2370; J3475; J7030; J7040; J7050